=== PATIENT | female | born 1935 | race Caucasian/White ===

== ENCOUNTER 2016-06-10 11:38 | Emergency (ER) | payer OTHER ==
[~2016-06-10] VITALS: Ht 160 cm; Wt 61.2 kg
--- NOTE | ~2016-06-10 | EKG ---
[place] [address] [employer] [place] [address] ELECTROCARDIOGRAM REPORT Name: JUAN J GONSALES [facility] [id number] Admission: 06/10/16 Attend Phys: Discharge: 06/10/16 Date of : 35 Report #: [id number] THIS REPORT FOR: //name// [facility] ED Test Date: 2016-06-10 Test Time: 13:24:46 Pat Name: JUAN J GONSALES Department: Room: Gender: F Member Service Representative: steph : 1935 Requested By: Georges Arellano Order Number: [id number] MD: Tj Pearson Measurements Intervals [place] Rate: 86 P: [place]: QRS: -38 QRSD: 105 T: -65 QT: 410 QTc: 491 Interpretive Statements Atrial fibrillation LVH with secondary repolarization abnormality Inferior infarct, old Nonspecific ST and T wave abnormality No previous ECG available for comparison Electronically Signed On 06-11-2016 8:38:22 CDT by Tj Pearson [email or web address] <ELECTRONICALLY SIGNED> By: Tj Pearson MD, [facility] 06/11/16 0838 1324 1324 Tj Pearson MD, FACC /EPI
[~2016-06-10 11:38] MED LIST: ARICEPT 5 MG TAB5 MG PO; ASPIRIN EC81 M1 PO; ATORVASTATIN CA40 MG PO; CELEBREX 200 M200 M1 PO; DIAZEPAM 2MG TAB2 MG PO; HYDROCODONE-AP1 EAC6 PO; LISINOPRIL5 MG PO; MAXZIDE-25 MG1 EACH PO; NEXIUM 40 MG CA40 M1 PO; UNICOMPLEX M TA1 TA1 PO
[2016-06-10 12:54] LABS: HEMATOCRIT 38.6 % (37.0-47.0); MANUAL DIFF YES; MCHC 33.7 g/dL (28.0-37.0); MCV 89.1 fL (80.0-100.0); PLATELET COUNT 232 thou/uL (150-400); RBC 4.33 mil/uL (4.20-5.00); RDW 13.9 % (10.5-14.5); WBC 13.7 thou/uL (4.0-11.0)
[2016-06-10 12:57] LABS: CALCIUM 8.8 mg/dL (8.5-10.1); CREATININE 1.3 mg/dL (0.6-1.0); POTASSIUM 3.3 mmol/L (3.5-5.1)
[2016-06-10 13:09] LABS: TROPONIN-I 0.08 ng/mL (<0.04-0.07)
[2016-06-10 13:23] LABS: URINE BILIRUBIN NEGATIVE (Negative); URINE BLOOD NEGATIVE (Negative); URINE COLOR YELLOW; URINE GLUCOSE-RANDOM* NEGATIVE (Negative); URINE KETONES TRACE (Negative); URINE NITRITE NEGATIVE (Negative); URINE PROTEIN (DIPSTICK) NEGATIVE (Negative)
[2016-06-10 13:29] LABS: ABSOLUTE NEUTROPHILS 11.8 thou/uL (1.4-8.2); TOTAL CELL COUNT 100
== END 2016-06-10 16:02 | disposition home or self-care (01) ==
LOC: ER 11:38
PROVIDERS: Emergency Medicine
DX: M25.562 Pain in left knee (principal); I10 Essential (primary) hypertension; E78.5 Hyperlipidemia, unspecified

== ENCOUNTER 2017-03-04 14:40 | Inpatient (IN) | payer OTHER ==
[~2017-03-04] VITALS: Ht 167.6 cm; Wt 58.1 kg
--- NOTE | ~2017-03-04 | EKG ---
[address] [address] ELECTROCARDIOGRAM REPORT Name: ILDAJUAN J Room #: 202-P ADM IN M.R.#: [id number] Admission: 03/04/17 Attend Phys: Myles Wilson MD Discharge: Date of : 35 Report #: [id number] THIS REPORT FOR: //name// [facility] ED Test Date: 2017-03-04 Test Time: 14:58:52 Pat Name: JUAN J GONSALES Department: Room: 202 Gender: F Aviation Electronics Technician: [email or web address] : 1935 Requested By: Cash Tejeda Order Number: [id number] MD: Bryan Morales Measurements Intervals [place] Rate: 96 P: [place]: QRS: -33 QRSD: 95 T: 183 QT: 327 QTc: 414 Interpretive Statements Atrial fibrillation LVH with secondary repolarization abnormality Anterior infarct, old Compared to ECG 06/10/2016 13:24:46 ST (T wave) deviation no longer present Myocardial infarct finding still present Electronically Signed On 03-05-2017 8:26:35 TALENT DEVELOPMENT DIRECTOR by Bryan Morales [email or web address] <ELECTRONICALLY SIGNED> By: Bryan Morales MD 03/05/17 0826 1458 1458 Bryan Morales MD /EPI
--- NOTE | ~2017-03-04 | EKG ---
[address] [address] ELECTROCARDIOGRAM REPORT Name: JUAN J GONSALES Room #: 202-P ADM IN M.R.#: [id number] Admission: 03/04/17 Attend Phys: Myles Wilson MD Discharge: Date of : 35 Report #: [id number] THIS REPORT FOR: //name// [facility] Test Date: 2017-03-06 Test Time: 10:49:02 Pat Name: JUAN J GONSALES Department: Room: 202 P Gender: F Applications Architect: ROXANA : 1935 Requested By: Bryan Morales Order Number: [id number] MD: Bryan Morales Measurements Intervals [place] Rate: 85 P: [place]: QRS: -33 QRSD: 101 T: 209 QT: 382 QTc: 455 Interpretive Statements Atrial fibrillation LVH with secondary repolarization abnormality Probable inferior infarct, age indeterminate Probable anterior infarct, age indeterminate Compared to ECG 03/04/2017 14:58:52 No significant changes Electronically Signed On 03-06-2017 15:54:53 SEED EXPERT by Bryan Morales [email or web address] <ELECTRONICALLY SIGNED> By: Bryan Morales MD 03/06/17 1554 1049 1049 Bryan Moarles MD /EPI
--- NOTE | ~2017-03-04 | 2DMMODE ---
[facility] [address] [place] [address] 2 D/M-MODE ECHOCARDIOGRAM Name: JUAN J GONSALES Room #: 202-P ADM IN M.R.#: [id number] Admission: 03/04/17 Attend Phys: Myles Wilson, Discharge: Date of : 35 Date of Service: 03/05/17 1435 Report #: [id number] THIS REPORT FOR: //name// APPROVED REPORT Study performed: 03/05/2017 08:13:18 EXAM: Comprehensive 2D, Doppler, and color-flow Echocardiogram Patient Location: Bedside Room #: 202 Status: routine BSA: 1.69 HR: 90 bpm BP: 149/88 mmHg Other Information Study Quality: Good Indications Elevated Troponin Hypertension/HDD Weakness 2D Dimensions RVDd: 29.00 mm LVEF(%): 28.27 (>50%) IVSd: 18.36 (7-11mm) LVOT Diam: 18.50 (18-24mm) LVDd: 40.93 mm PWd: 18.30 (7-11mm) LVDs: 35.61 (25-40mm) Aortic Root: 29.05 mm IVC: 13.00 mm Hanson's LVEF: 28.27 % Volumes Left Atrial Volume (Systole) Single Plane 4CH: 66.61 mL Single Plane 2CH: 46.58 mL LA ESV Index: 37.00 mL/m2 Aortic Valve AoV Peak Estuardo.: 1.56 m/s AO Peak Gr.: 9.69 mmHg LVOT Max P.21 mmHg LVOT Max V: 0.74 m/s BERTA Vmax: 1.28 cm2 Mitral Valve MV Decel. Time: 165.32 ms [facility] [place] [place] [address] 2 D/M-MODE ECHOCARDIOGRAM Name: ILDAFITZPATRICK Room #: 202-P ADM IN .R.#: [id number] Admission: 03/04/17 Attend Phys: Myles Wilson, Discharge: Date of : 35 Date of Service: 03/05/17 1435 Report #: [id number] MV E Max Estuardo.: 0.88 m/s IVRT: 115.34 ms Pulmonary Valve PV Peak Estuardo.: 0.88 m/s PV Peak Gr.: 3.07 mmHg Tricuspid Valve TR Peak Estuardo.: 2.57 m/s RAP Estimate: 10.00 mmHg TR Peak Gr.: 26.33 mmHg PA Pressure: 36.00 mmHg Left Ventricle The left ventricle is normal size. Moderate concentric left ventricular hypertrophy. Left ventricular ejection fraction is moderately decreased. LVEF is 30-35%. This study is not technically sufficient to allow evaluation of the LV diastolic function due to atrial fibrillation. Right Ventricle The right ventricle is normal size. Right ventricle is hypokinetic. Atria Left atrium is mildly dilated. Right atrium is moderately dilated. Aortic Valve Aortic valve is thickened but has adequate excursion. Mild aortic regurgitation. There is no aortic valvular stenosis. Mitral Valve Mild mitral annular calcification. Moderate mitral regurgitation. No evidence of mitral valve stenosis. Tricuspid Valve The tricuspid valve is normal in structure. Trace to mild tricuspid regurgitation. PAP is estimated at 36 mmHg. Pulmonic Valve Pulmonic valve is not well visualized. Mild pulmonic regurgitation. Great Vessels The aortic root is normal in size. Ascending aorta is not well visualized. IVC is normal in size and collapses <50% with inspiration. [facility] [address] [address] 2 D/M-MODE ECHOCARDIOGRAM Name: JUAN J GONSALES Room #: 202-P ADM IN M.R.#: [id number] Admission: 03/04/17 Attend Phys: Myles Wilson, Discharge: Date of : 35 Date of Service: 03/05/17 1435 Report #: [id number] Pericardium There is no pericardial effusion. Small pleural effusion is noted. <Conclusion> The left ventricle is normal size. Moderate concentric left ventricular hypertrophy. Left ventricular ejection fraction is moderately decreased. LVEF is 30-35%. This study is not technically sufficient to allow evaluation of the LV diastolic function due to atrial fibrillation. The right ventricle is normal size. Left atrium is mildly dilated. Right atrium is moderately dilated. There is no aortic valvular stenosis. Mild aortic regurgitation. Moderate mitral regurgitation. The tricuspid valve is normal in structure. Trace to mild tricuspid regurgitation. PAP is estimated at 36 mmHg. There is no pericardial effusion. <ELECTRONICALLY SIGNED> By: Bryan Morales MD 03/05/17 1435 1435 1435 Bryan Morales MD /INF
--- NOTE | ~2017-03-04 | P ---
[facility] [place] [address] PROCEDURE REPORT Name: JUAN J GONSALES Room #: 202-P ADM IN M.R.#: [id number] Admission: 03/04/17 Attend Phys: Myles Wilson MD Discharge: Date of : 35 Report #: [id number] THIS REPORT FOR: //name// CC: Emmanuelle Wilson REASON FOR CONSULTATION: Elevated troponin on serial labs. HISTORY OF PRESENT ILLNESS: This is an 81-year-old with advanced dementia who was brought here with increased fatigue and weakness. Apparently, she has had 2 falls at home. These have both occurred in the past 48 hours. Speaking with the patient, she denies any chest pain or shortness of breath. She denies PND, orthopnea. She denies presyncope or syncope. She is in the room with her two children. REVIEW OF SYSTEMS: Unable to obtain due to dementia, but she denies any fevers or chills or chest pain. PAST MEDICAL HISTORY: Includes hypertension, possible prior TIA and CVA. SOCIAL HISTORY: Does not smoke. She lives at home with her 95-year-old . FAMILY HISTORY: Significant for some cancer and CAD. ALLERGIES: No known drug allergies. MEDICATIONS AT HOME: Aspirin, Lipitor, Celebrex, Nexium, multivitamin, and Aricept. PHYSICAL EXAMINATION: VITAL SIGNS: Temperature is 36.4, pulse 84, respiration 18, blood pressure 168/91, sats are 98%. GENERAL: She is in no acute distress. She is alert to person, but not place, month, year or president or situation. HEENT: Sclerae anicteric. Oropharynx is clear. HEART: Irregularly irregular with no murmurs, rubs, gallops. She does not have elevated jugular venous pressure. LUNGS: Clear to auscultation bilaterally. ABDOMEN: Soft, nontender, nondistended. EXTREMITIES: No clubbing, cyanosis, edema. NEUROLOGIC: Cranial nerves 2-12 are grossly intact. DIAGNOSTIC DATA: Her 12-lead EKG shows atrial fibrillation with a controlled ventricular response and no ischemic changes. Her chest x-ray shows an enlarged cardiac silhouette with no obvious pulmonary [facility] [address] [place] [address] PROCEDURE REPORT Name: JUAN J GONSALES Room #: 202-P ADM IN ..#: [id number] Admission: 03/04/17 Attend Phys: Myles Wilson MD Discharge: Date of : 35 Report #: [id number] edema. Hemoglobin is 12, white count 7, platelets 172. Sodium is 142, potassium 4.2, chloride 102, BUN 19, creatinine 1.1, glucose 87, magnesium 1.6. Head CT, no acute process. ASSESSMENT: 1. New onset atrial fibrillation. 2. Recurrent falls. 3. Profound weakness. 4. Severe dementia. 5. Elevated troponin at 0.22 and 0.18. 6. Severe malnutrition. 7. Hypokalemia. 8. Hypomagnesemia. In summary, the patient is an 81-year-old admitted with profound weakness and found to be in new onset atrial fibrillation. Her rates appear to be auto controlled. I would continue to monitor, currently. Given her recurrent falls, I would advise against anticoagulation and we can treat her with a daily aspirin. We will obtain an echocardiogram to evaluate her LV size and function. I think given her advanced dementia, all management options should be in terms of cardiovascular intervention, should be utilizing a conservative approach. We will continue to follow. <ELECTRONICALLY SIGNED> By: Bryan Morales MD 03/07/17 1308 1133 1945 Bryan Morales MD /nt
[2017-03-04 14:41] VITALS: BP 165/86
[2017-03-04 15:27] LABS: URINE BILIRUBIN NEGATIVE (Negative); URINE BLOOD TRACE (Negative); URINE CLARITY CLEAR; URINE GLUCOSE-RANDOM* NEGATIVE (Negative); URINE KETONES 1+ (Negative); URINE LEUKOCYTES-REFLEX NEGATIVE (Negative); URINE NITRITE-REFLEX NEGATIVE (Negative); URINE PROTEIN (DIPSTICK) 1+ (Negative)
[2017-03-04 15:31] LABS: URINE COLOR YELLOW
[2017-03-04 15:35] LABS: ABSOLUTE NEUTROPHILS 7.2 thou/uL (1.4-8.2); BASOPHILS 0.8 % (0.0-2.0); EOSINOPHILS 0.3 % (0.0-3.0); HEMATOCRIT 40.2 % (37.0-47.0); HEMOGLOBIN 13.5 gm/dL (12.0-15.0); LYMPHOCYTES 21.6 % (24.0-44.0); MCH 31.1 pg (26.0-34.0); MCHC 33.7 g/dL (28.0-37.0); MCV 92.2 fL (80.0-100.0); MONOCYTES 7.4 % (1.0-8.0); PLATELET COUNT 190 thou/uL (150-400); POLYS 69.9 % (36.0-66.0); RBC 4.36 mil/uL (4.20-5.00); RDW 15.3 % (10.5-14.5); WBC 10.3 thou/uL (4.0-11.0)
[2017-03-04 15:43] LABS: CASTS None Seen /LPF (None Seen); CRYSTALS None Seen /LPF (None Seen); SQUAMOUS 0-3 Few /LPF (0-3); URINE RBC 0-2 Rare /HPF (0-2); URINE WBC-REFLEX None Seen /HPF (0-5)
[2017-03-04 15:44] LABS: BACTERIA-REFLEX 1-9 Few /HPF (None Seen)
[2017-03-04 15:45] LABS: CALCIUM 9.2 mg/dL (8.5-10.1); CREATININE 1.2 mg/dL (0.6-1.0)
[2017-03-04 15:53] LABS: ALBUMIN 3.4 g/dL (3.4-5.0); MAGNESIUM 1.2 mg/dL (1.8-2.4); TOTAL BILIRUBIN 1.1 mg/dL (<0.1-1.0); TOTAL PROTEIN 7.5 g/dL (6.4-8.2); TROPONIN-I 0.2 ng/mL (<0.06)
[2017-03-04 15:54] LABS: POTASSIUM 2.6 mmol/L (3.5-5.1)
[2017-03-04 20:11] VITALS: BP 128/78
[2017-03-04 20:22] VITALS: BP 128/78
[2017-03-04 21:08] VITALS: BP 126/74
[2017-03-04 21:11] VITALS: BP 144/79
[2017-03-05 00:04] VITALS: BP 147/86
[2017-03-05 03:39] LABS: HEMATOCRIT 38.7 % (37.0-47.0); HEMOGLOBIN 12.8 gm/dL (12.0-15.0); MCH 30.8 pg (26.0-34.0); MCHC 33.2 g/dL (28.0-37.0); MCV 92.8 fL (80.0-100.0); RBC 4.17 mil/uL (4.20-5.00); RDW 15.5 % (10.5-14.5); WBC 7.8 thou/uL (4.0-11.0)
[2017-03-05 03:46] LABS: CALCIUM 8.6 mg/dL (8.5-10.1); CREATININE 1.1 mg/dL (0.6-1.0); MAGNESIUM 1.6 mg/dL (1.8-2.4)
[2017-03-05 03:52] LABS: POTASSIUM 2.4 mmol/L (3.5-5.1)
[2017-03-05 04:19] VITALS: BP 149/88
[2017-03-05 08:02] VITALS: BP 168/91
[2017-03-05 12:00] VITALS: BP 145/85
[2017-03-05 16:23] LABS: MAGNESIUM 1.8 mg/dL (1.8-2.4); POTASSIUM 4.1 mmol/L (3.5-5.1)
[2017-03-05 16:38] VITALS: BP 143/87
[2017-03-05 19:25] VITALS: BP 135/100
[2017-03-06 03:55] VITALS: BP 132/84
[2017-03-06 07:00] VITALS: BP 130/69
[2017-03-06 07:05] VITALS: BP 130/69
[2017-03-06 07:16] LABS: HEMATOCRIT 39.7 % (37.0-47.0); HEMOGLOBIN 13.2 gm/dL (12.0-15.0); MCH 30.7 pg (26.0-34.0); MCHC 33.3 g/dL (28.0-37.0); MCV 92.3 fL (80.0-100.0); RBC 4.31 mil/uL (4.20-5.00); RDW 15.7 % (10.5-14.5); WBC 15.5 thou/uL (4.0-11.0)
[2017-03-06 07:24] LABS: CREATININE 1.2 mg/dL (0.6-1.0); POTASSIUM 4.5 mmol/L (3.5-5.1)
[2017-03-06 11:20] VITALS: BP 96/61
[2017-03-06 16:20] VITALS: BP 103/63
[2017-03-06 19:45] VITALS: BP 122/63
[2017-03-07 04:01] VITALS: BP 134/57
[2017-03-07 05:46] LABS: HEMATOCRIT 37.3 % (37.0-47.0); HEMOGLOBIN 12.3 gm/dL (12.0-15.0); MCH 30.9 pg (26.0-34.0); MCHC 33.1 g/dL (28.0-37.0); MCV 93.2 fL (80.0-100.0)
[2017-03-07 05:54] LABS: CALCIUM 9.2 mg/dL (8.5-10.1); CREATININE 1.1 mg/dL (0.6-1.0); POTASSIUM 4.3 mmol/L (3.5-5.1)
[2017-03-07 07:30] VITALS: BP 136/79
[2017-03-07 11:18] VITALS: BP 120/65
[2017-03-07 19:24] VITALS: BP 126/73
[2017-03-08 03:28] LABS: CALCIUM 9.2 mg/dL (8.5-10.1); POTASSIUM 4.1 mmol/L (3.5-5.1)
[2017-03-08 04:18] LABS: HEMATOCRIT 37.1 % (37.0-47.0); HEMOGLOBIN 12.3 gm/dL (12.0-15.0); MCHC 33.1 g/dL (28.0-37.0); MCV 93.7 fL (80.0-100.0); RBC 3.96 mil/uL (4.20-5.00); RDW 15.9 % (10.5-14.5); WBC 10.7 thou/uL (4.0-11.0)
[2017-03-08 06:43] VITALS: BP 145/94
[2017-03-08 08:35] VITALS: BP 152/94
[2017-03-08 11:44] VITALS: BP 143/78
[2017-03-08] MEDS ORDERED: LOPRESSOR50 PO (12:57)
== END 2017-03-08 16:20 | DRG 291 ==
LOC: ER 14:40 → EROBS 16:08 → 2N 16:08
PROVIDERS: Emergency Medicine; Internal Medicine
PROC: B24BZZ4 Ultrasonography of Heart with Aorta, Transesophageal (ICD-10-PCS; principal; 2017-03-05)
DX: I13.0 Hypertensive heart and chronic kidney disease with heart failure and stage 1 through stage 4 chronic kidney disease, or unspecified chronic kidney disease (principal); E43 Unspecified severe protein-calorie malnutrition; J18.1 Lobar pneumonia, unspecified organism; I50.23 Acute on chronic systolic (congestive) heart failure; Z66 Do not resuscitate; E78.5 Hyperlipidemia, unspecified; I48.91 Unspecified atrial fibrillation; E83.42 Hypomagnesemia; E87.6 Hypokalemia; N18.9 Chronic kidney disease, unspecified; G30.9 Alzheimer's disease, unspecified; I42.9 Cardiomyopathy, unspecified; F02.80 Dementia in other diseases classified elsewhere, unspecified severity, without behavioral disturbance, psychotic disturbance, mood disturbance, and anxiety; E78.00 Pure hypercholesterolemia, unspecified; Z79.82 Long term (current) use of aspirin; Z79.899 Other long term (current) drug therapy; Z80.8 Family history of malignant neoplasm of other organs or systems; Z82.49 Family history of ischemic heart disease and other diseases of the circulatory system; Z23 Encounter for immunization
CPT/HCPCS: 10081